=== PATIENT | male | born 1995 | race American Indian/Alaskan Native ===

== ENCOUNTER 2021-07-14 17:13 | Emergency (ER) | payer OTHER, BC ==
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
[2021-07-15 06:03] VITALS: BP 128/72
== END 2021-07-14 23:00 | disposition left against medical advice (07) ==
LOC: ED 17:13
DX: M25.511 Pain in right shoulder (principal)
CPT/HCPCS: 99283